=== PATIENT | male | born 1955 | race Caucasian/White ===

== ENCOUNTER 2022-02-18 08:13 | Outpatient (CLI) | payer OTHER, SELFPAY ==
[2022-02-18 15:11] LABS: Albumin* 4.3 g/dL (3.3-5.0); Chloride* 102 mmol/L (96-114); Sodium* 138 mmol/L (135-149)
[2022-02-18 15:14] LABS: Bilirubin Total* 1.1 mg/dL (0.1-1.5); Blood Urea Nitrogen* 19 mg/dL (7-30); Carbon Dioxide* 31 mmol/L (20-32); Cholesterol* 181 mg/dL (90-199); Creatinine* 0.9 mg/dL (0.5-1.5); Estimated Glomerular Filt Rate 95 ml/min
[2022-02-18 15:15] LABS: Alanine Aminotransferase* 55 U/L (4-50); Alkaline Phosphatase* 54 U/L (40-150); Aspartate Amino Transferase* 44 U/L (12-35); Calcium* 9.9 mg/dL (8.4-10.6); Glucose* 106 mg/dL (60-115); HDL Cholesterol* 60 mg/dL (>=40); LDL Cholesterol Calculated 108 mg/dL (<100); Triglycerides* 65 mg/dL (40-149)
[2022-02-18 15:43] LABS: PSA Screen* 2.24 ng/mL (0.10-4.00)
== END 2022-02-18 08:14 | disposition home or self-care (01) ==
PROVIDERS: PCP Family Medicine; Visit Provider Family Medicine
DX: Z00.00 Encounter for general adult medical examination without abnormal findings (principal); M25.512 Pain in left shoulder; M25.562 Pain in left knee; R06.09 Other forms of dyspnea; Z12.5 Encounter for screening for malignant neoplasm of prostate; Z13.6 Encounter for screening for cardiovascular disorders
CPT/HCPCS: 80053; 80061; 84153; 84443

== ENCOUNTER 2023-05-03 08:56 | Outpatient (CLI) | payer OTHER, SELFPAY | END 2023-05-03 08:57 | disposition home or self-care (01) | PROVIDERS: PCP Family Medicine; Visit Provider Family Medicine | DX: Z00.00 Encounter for general adult medical examination without abnormal findings (principal); R79.89 Other specified abnormal findings of blood chemistry; E66.3 Overweight; E78.00 Pure hypercholesterolemia, unspecified; Z12.5 Encounter for screening for malignant neoplasm of prostate | CPT/HCPCS: 80053; 80061; G0103 ==

== ENCOUNTER 2024-05-31 14:28 | Outpatient (CLI) | payer OTHER, SELFPAY | END 2024-05-31 14:29 | disposition home or self-care (01) | PROVIDERS: PCP Family Medicine; Visit Provider Family Medicine | DX: Z00.01 Encounter for general adult medical examination with abnormal findings (principal); R79.89 Other specified abnormal findings of blood chemistry; Z12.5 Encounter for screening for malignant neoplasm of prostate | CPT/HCPCS: 80053; 80061; G0103 ==